=== PATIENT | female | born 1965 | race Caucasian/White ===

== ENCOUNTER → 2020-12-22 08:46 | Outpatient (CLI) | payer BC, SELFPAY ==
[2020-12-22 09:17] LABS: COVID19 -Nasal RAPID Negative (Negative)
== END ==
PROVIDERS: Visit Provider Physician Assistant
DX: Z20.822 Contact with and (suspected) exposure to COVID-19 (principal); J02.9 Acute pharyngitis, unspecified
CPT/HCPCS: 87635

== ENCOUNTER → 2021-02-19 09:56 | Outpatient (CLI) | payer BC, SELFPAY ==
--- NOTE | 2021-02-19 09:58 | DI.RAD.S_ITS ---
PROCEDURE: XR ANKLE LT MIN 3V INDICATIONS: inversion injury x3 day ago, pain, swelling TECHNIQUE: 3 views of the ankle were acquired. COMPARISON: [facility], , XR FOOT LT MIN 3V, 02/19/2021, 9:56. FINDINGS: Bones: No acute fractures or dislocations. Ankle mortise is normally aligned. No suspicious bony lesions. The talar dome demonstrates no ilana abnormality. A plantar calcaneal spur is seen. Mild, age-appropriate degenerative changes can be seen. Soft tissues: No tibiotalar joint effusion. Achilles tendon appears normal. IMPRESSION: Unremarkable ankle plain films for age. Dictated by: Michael Carty M.D. on 02/19/2021 at 9:15 Approved by: Michael Carty M.D. on 02/19/2021 at 9:16
--- NOTE | 2021-02-19 09:58 | DI.RAD.S_ITS ---
PROCEDURE: XR FOOT LT MIN 3V INDICATIONS: inversion injury x3 day ago, pain, swelling TECHNIQUE: 3 views of the foot were acquired. COMPARISON: [facility], CR, XR ANKLE LT MIN 3V, 02/19/2021, 9:56. FINDINGS: Bones: No fractures or dislocations. No suspicious bony lesions. A plantar calcaneal spur is seen. Age-appropriate bony degenerative changes are seen. Soft tissues: No tibiotalar joint effusion. Achilles tendon appears normal. IMPRESSION: Normal foot plain films for age, without acute fractures seen. Dictated by: Michael Carty M.D. on 02/19/2021 at 9:16 Approved by: Michael Carty M.D. on 02/19/2021 at 9:17
== END ==
PROVIDERS: PCP Internal Medicine; Referring Provider Physician Assistant; Visit Provider Physician Assistant
DX: S99.912A Unspecified injury of left ankle, initial encounter (principal); X58.XXXA Exposure to other specified factors, initial encounter
CPT/HCPCS: 73610; 73630

== ENCOUNTER → 2021-03-13 14:45 | Outpatient (CLI) | payer BC, SELFPAY ==
--- NOTE | 2021-03-13 14:49 | DI.RAD.S_ITS ---
PROCEDURE: XR ANKLE LT MIN 3V INDICATIONS: LT ANKLE ACUTE PAIN TECHNIQUE: 3 views of the ankle were acquired. COMPARISON: [facility], CR, XR ANKLE LT MIN 3V, 02/19/2021, 9:56. FINDINGS: Bones: No fractures or dislocations. Ankle mortise is normally aligned. No suspicious bony lesions. Soft tissues: Moderate-sized tibiotalar joint effusion. Achilles tendon appears normal. IMPRESSION: Moderate-sized tibiotalar effusion. No acute osseous finding. Dictated by: Fahad Garcia M.D. on 03/13/2021 at 16:57 Approved by: Fahad Garcia M.D. on 03/13/2021 at 16:58
== END ==
PROVIDERS: PCP Internal Medicine; Referring Provider Internal Medicine; Visit Provider Internal Medicine
DX: M25.572 Pain in left ankle and joints of left foot (principal); M25.472 Effusion, left ankle
CPT/HCPCS: 73610

== ENCOUNTER → 2021-04-25 18:02 | Outpatient (CLI) | payer BC, SELFPAY ==
--- NOTE | 2021-04-25 | DI.MRI.S_ITS ---
PROCEDURE: MR ANKLE LT WO CON INDICATIONS: pain in left ankle and joints of left foot TECHNIQUE: Noncontrast sagittal T1 spin echo and T2 fast spin echo with fat saturation, axial proton density fast spin echo and T2 fast spin echo with fat saturation, coronal T1 spin echo and T2 fast spin echo with fat saturation through the ankle/hindfoot. COMPARISON: None. FINDINGS: Image quality: Excellent. Bones and joints: No bone marrow contusions or fractures. No hindfoot coalitions. No osteochondral injuries of the talar dome. No pathologic joint effusions. Medial structures: Thickened posterior tibialis tendon with small amount of fluid distending tendon sheath suggestive of tendinosis and low-grade tenosynovitis at the level of talonavicular joint. The flexor digitorum longus and flexor hallucis longus tendons are intact. The posterior tibial neurovascular bundle appears normal within the tarsal tunnel, without extrinsic mass effect. The deep layer (anterior and posterior tibiotalar ligaments) and superficial layer (tibionavicular, tibiospring, and tibiocalcaneal ligaments) of the deltoid ligament appear normal. The spring ligament components (superomedial calcaneonavicular, medioplantar oblique calcaneonavicular, and inferoplantar longitudinal ligaments) are intact. Lateral structures: The anterior talofibular, calcaneofibular, and posterior talofibular ligaments appear thickened with intrasubstance T2 hyperintense signal concerning for sprain/low to moderate grade intrasubstance partial-thickness tear. No full-thickness relate lumen rupture.. More superiorly, the anterior and posterior tibiofibular ligaments appear intact, as is the intermalleolar ligament. The tibiofibular syndesmosis is normal in width at 2 mm or less. The peroneus longus and brevis tendons demonstrate normal location and morphology. Adjacent bony peroneal tubercle and retrotrochlear prominence are normal in size. The sinus tarsi demonstrates normal fatty signal, without edema, fibrosis, or cyst formation. Visualized sinus tarsi components (cervical ligament, interosseous talocalcaneal ligament, roots of the inferior extensor retinaculum) appear normal. The calcaneonavicular and calcaneocuboid components of the bifurcate ligament appear intact. The dorsal calcaneocuboid ligament appears intact. Anterior structures: The tibialis anterior, extensor hallucis longus, and extensor digitorum longus tendons appear intact. The dorsal talonavicular ligament appears intact. Posterior and plantar structures: Achilles tendon is intact. Medial and lateral bands of the plantar fascia are of normal thickness. No abductor digiti quinti muscle atrophy to suggest Connell neuropathy. IMPRESSION: 1. Mild tendinosis and low-grade tenosynovitis involving posterior tibialis tendon at the level of distal talus/talonavicular joint. Rest of the ankle tendons are grossly intact. 2. Sprain/low to moderate grade intrasubstance partial-thickness tear involving anterior and posterior talofibular ligaments and calcaneofibular ligament more prominent in anterior talofibular ligament. No full-thickness ligament rupture. Medial ankle ligaments are intact. 3. No marrow edema. No fracture or dislocation. No suspicious intraosseous lesion. Dictated by: Barrera Zuñiga M.D. on 04/26/2021 at 9:13 Approved by: Barrera Zuñiga M.D. on 04/26/2021 at 9:15
== END ==
PROVIDERS: PCP Internal Medicine; Referring Provider Orthopaedic Surgery Foot and Ankle Surgery; Visit Provider Orthopaedic Surgery Foot and Ankle Surgery
DX: S93.412A Sprain of calcaneofibular ligament of left ankle, initial encounter (principal); S93.492A Sprain of other ligament of left ankle, initial encounter; M65.872 Other synovitis and tenosynovitis, left ankle and foot; M25.572 Pain in left ankle and joints of left foot
CPT/HCPCS: 73721

== ENCOUNTER → 2022-01-16 07:51 | Outpatient (CLI) | payer BC, SELFPAY ==
[2022-01-16 08:45] LABS: Influenza A - CEPHEID Flu A NEGATIVE (NEGATIVE); Influenza B - CEPHEID Flu B NEGATIVE (NEGATIVE); Respiratory Syncytial Virus POSITIVE (Negative)
[2022-01-16 09:31] LABS: COVID-19 CEPHEID 4-PLEX PCR Negative (Negative)
== END ==
PROVIDERS: PCP Internal Medicine; Visit Provider Nurse Practitioner Family
DX: R05.9 Cough, unspecified (principal)
CPT/HCPCS: 0241U

== ENCOUNTER 2022-04-13 18:57 | Emergency (ER) | payer BC, SELFPAY ==
[2022-04-13 19:01] VITALS: BP 128/65; PULSE 78; RESP 18; TEMP 36.4; O2SAT 98; BMI 28.1
--- NOTE | 2022-04-13 19:48 | PC.NURSE ---
Pt grabbed stainless steel handle of garcia with right hand while cooking. Has red areas and scattered blisters across palm and on base of first/second fingers. All blisters intact. Pt arrived to ED with aloe vera gel on burned area.
--- NOTE | 2022-04-13 20:18 | ED.BURNSMOKE ---
HPI - Burn/Smoke Inhalation <Rosa Stephenson PA-C - Last Filed: 04/13/22 20:29> General Chief complaint: Burn/Smoke Inhalation Stated complaint: Burn on R hand Time Seen by Provider: 04/13/22 19:44 History of Present Illness HPI Narrative: 56-year-old female presents with concern for a burn sustained today at home on her right hand. Patient states that she had pulled a garcia out of the oven with a pop hold her using her left hand she had said it on top of the stove and went to rotate it with the handle and grabbed it with her right hand accidentally without any pot tena. She states she did not run it under any cold water initially but did put aloe plant on it. She initially went to the walk-in clinic but was advised she should come to the emergency department. She was concerned she might have a third-degree burn because it is blistering. She denies any other complaints or concerns. Related Data Home Medications Medication Instructions Recorded Confirmed levothyroxine PO 01/16/22 01/16/22 liothyronine PO 01/16/22 01/16/22 Previous Rx's Medication Instructions Recorded benzonatate 100 mg capsule 100 mg PO BID PRN cough #20 caps 01/16/22 bacitracin 500 unit/gram topical 1 applic topical TID burn 14 days 04/13/22 packet #144 ea Allergies Allergy/AdvReac Type Severity Reaction Status Date / Time No Known Drug Allergies Allergy Unverified 01/16/22 07:49 Patient History <Rosa Stephenson PA-C - Last Filed: 04/13/22 20:29> Social History Smoking Status: Never smoker Smoking Status: Never smoker alcohol intake frequency: a few times a week Alcohol type: wine Exam <Rosa Stephenson PA-C - Last Filed: 04/13/22 20:29> Narrative Exam Narrative: GENERAL: 56 year old patient appears stated age. Well-developed patient, in mild distress. HEAD: Atraumatic. Normocephalic. EYES: Pupils equal round and reactive. Extraocular motions intact. No scleral icterus. No injection or drainage. ENT: Nose without bleeding, purulent drainage. Airway patent. NECK: Trachea midline. Non tender CARDIOVASCULAR: Regular rate and rhythm RESPIRATORY: No increased work of breathing or respiratory distress GASTROINTESTINAL: Abdomen soft, non-tender, nondistended. EXTREMITIES: Strength and range of motion as well as sensation of the affected right hand are intact. There are superficial appearing first-degree robbins on the anterior aspect of the 2nd 3rd and 4th fingers, there is 1 region on the lateral aspect of the 3rd finger between the PIP and DI P that looks like it has some slight blistering, possibly second-degree. Additionally there is a approximately 4 cm long by 3 mm wide linear second-degree burn with blistering on the thenar eminence running approximately distal to proximal. There do not appear to be any sections with full-thickness robbins. No other edema or joint tenderness noted. BACK: Nontender without deformity or crepitance. No flank tenderness. NEURO: AOx3. SKIN: No rash or erythema of visible areas Initial Vital Signs Initial Vital Signs: Vital Signs Temperature 97.6 F 04/13/22 19:01 Pulse Rate 78 04/13/22 19:01 Respiratory Rate 18 04/13/22 19:01 Blood Pressure 128/65 04/13/22 19:01 Pulse Oximetry 98 04/13/22 19:01 Oxygen Delivery Method 04/13/22 19:01 <DO Avani Carvalho Last Filed: 04/14/22 05:05> Initial Vital Signs Initial Vital Signs: Vital Signs Temperature 97.6 F 04/13/22 19:01 Pulse Rate 78 04/13/22 19:01 Respiratory Rate 18 04/13/22 19:01 Blood Pressure 128/65 04/13/22 19:01 Pulse Oximetry 98 04/13/22 19:01 Oxygen Delivery Method 04/13/22 19:01 Course <NANCY Browning Last Filed: 04/13/22 20:29> Vital Signs Vital signs: Vital Signs - 8 hr 04/13/22 19:01 Temperature 97.6 F Pulse Rate 78 Respiratory Rate 18 Blood Pressure 128/65 Pulse Oximetry 98 Oxygen Delivery Method Room Air <DO Avani Carvalho Last Filed: 04/14/22 05:05> Vital Signs Vital signs: Vital Signs - 8 hr 04/13/22 19:01 Temperature 97.6 F Pulse Rate 78 Respiratory Rate 18 Blood Pressure 128/65 Pulse Oximetry 98 Oxygen Delivery Method Room Air MDM - Burn/Smoke Inhalation <NANCY Browning Last Filed: 04/13/22 20:29> Differential Diagnosis Differential diagnosis: Likely other (thermal burn to palm and fingers, pain in hand) Medical Records Attestation: I reviewed the patient's medical records. [facility] Narrative Medical decision making narrative: 56-year-old female presents with concern for robbins to her right hand sustained this evening around 18 30 when she was taking a garcia out of the stove. They occurred when she was rotating the garcia without a pot tena not when she was lifting the garcia. Robbins appear to be first-degree over the fingers, and a 2nd degree burn over the thenar eminence. No 3rd degree robbins suspected. There is no open skin. Strength range of motion and sensation are intact in the affected hand. Patient is advised to monitor for infection, use bacitracin if and when her blisters open up and keep the area clean. Follow up closely with primary care provider. Return precautions provided, follow-up plan discussed, all questions answered. Discharge Plan Departure Patient Disposition: Home Clinical Impression: Burn of hand, right, second degree, Burn of hand, right, first degree Activity Restrictions/Additional Instructions: Thank you for letting us be part of your care today in the emergency department. I am sorry these who sustained a burn to her hand today. It does look like this is largely first-degree although you do have that section at the base of her thumb that is a second-degree burn. Burn can manager change time and I suspect that the blistered area of your burn may open up as it heals. You should keep the area clean, you can keep the area dry, this evening cool water or careful brief icing on and off may be helpful for pain. As of tomorrow though I recommend just using Tylenol or ibuprofen, you can use aloe at home as you already have if you prefer, however if your wounds open up at all I do want you to use bacitracin ointment antibiotic and not use the aloe topically. You should follow-up with your primary care provider to monitor healing in the next 5-14 days. If your concerned that there are signs of infection such as increasing redness, increasing pain, heat around the robbins, increasing swelling or drainage especially thick or purulent greenish yellow discharge do not hesitate to seek re-evaluation. I did send in a prescription for bacitracin and we also gave you a few packets today in the emergency department. Prescriptions: New bacitracin 500 unit/gram packet 1 applic topical TID 14 Days Qty: 144 0RF No Action levothyroxine PO liothyronine PO benzonatate 100 mg capsule 100 mg PO BID PRN (Reason: cough) Qty: 20 0RF Referrals: Blaze Yarbrough MD [Primary Care Provider] - Stand Alone Forms: Patient Portal/API <Chuyita Shane DO - Last Filed: 04/14/22 05:05> Cosign ED Attending Radha Attestation: I was immediately available in the department for consultation. Documentation has been reviewed.
== END 2022-04-13 20:30 | disposition home or self-care (01) ==
PROVIDERS: Emergency Provider Student in an Organized Health Care Education/Training Program; PCP Internal Medicine
DX: T23.221A Burn of second degree of single right finger (nail) except thumb, initial encounter (principal); T23.131A Burn of first degree of multiple right fingers (nail), not including thumb, initial encounter; X15.3XXA Contact with hot saucepan or skillet, initial encounter
CPT/HCPCS: 99281

== ENCOUNTER → 2022-06-21 13:46 | Outpatient (CLI) | payer BC, SELFPAY ==
--- NOTE | 2022-06-21 13:47 | DI.RAD.S_ITS ---
PROCEDURE: XR LUMBAR SPINE MIN 4V INDICATIONS: BACK PAIN TECHNIQUE: 5 views of the lumbar spine were acquired, including bilateral oblique views. COMPARISON: None. FINDINGS: Bones: 5 nonrib-bearing vertebrae are present. There is normal bony alignment. No vertebral body compression fractures. No suspicious bony lesions. There is mild degenerative disc height reduction best seen at L5-S1. Facet osteoarthritis is mild at L3-4, and becomes progressively more prominent at L4-5 and L5-S1. Soft tissues: Overlying bowel gas pattern is normal. No suspicious soft tissue calcifications. Oblique images: No pars defects. IMPRESSION: No compression fracture found. [id number] degenerative facet osteoarthritis becoming progressively more prominent from L3 through S1, with mild degenerative disc height reduction at the lumbosacral junction, but subluxation. Dictated by: Chalo Shah M.D. on 06/21/2022 at 15:02 Approved by: Chalo Shah M.D. on 06/21/2022 at 15:04
--- NOTE | 2022-06-21 13:47 | DI.RAD.S_ITS ---
PROCEDURE: XR CERVICAL SPINE 4V OR 5V INDICATIONS: NECK PAIN TECHNIQUE: 5 views of the cervical spine acquired. COMPARISON: None. FINDINGS: Bones: No fractures or dislocations to the T1 level. Oblique images demonstrate no significant bony foraminal stenoses except at the C5-6 neural foramen, bilaterally, right greater than left. This is also the level of maximal degenerative disc height reduction and endplate osteophytic spurring, with only mild such degenerative changes elsewhere. Soft tissues: No prevertebral soft tissue swelling. IMPRESSION: C5-6 moderate degenerative disc disease and facet osteoarthritis with spurring likely causing asymmetric right greater than left foraminal stenosis and mild spinal stenosis. Depending on the clinical status follow-up by MR scanning may be warranted given these findings. Dictated by: Chalo Shah M.D. on 06/21/2022 at 15:00 Approved by: Chalo Shah M.D. on 06/21/2022 at 15:02
--- NOTE | 2022-06-21 13:47 | DI.RAD.S_ITS ---
PROCEDURE: XR THORACIC SPINE 3V INDICATIONS: RIB PAIN TECHNIQUE: 3 views of the thoracic spine were acquired. COMPARISON: None. FINDINGS: Bones: No fractures or dislocations. No suspicious bony lesions. 12 pairs of ribs are noted, and appear intact where visualized. Soft tissues: No paravertebral stripe thickening. IMPRESSION: Mild degenerative disc disease without subluxation is noted along the thoracic spine. No compression fracture found, no osteophytic spurring identified. Dictated by: Chalo Shah M.D. on 06/21/2022 at 15:04 Approved by: Chalo Shah M.D. on 06/21/2022 at 15:05
== END ==
PROVIDERS: PCP Internal Medicine; Referring Provider Physical Medicine & Rehabilitation; Visit Provider Physical Medicine & Rehabilitation
DX: M50.322 Other cervical disc degeneration at C5-C6 level (principal); M47.812 Spondylosis without myelopathy or radiculopathy, cervical region; M47.814 Spondylosis without myelopathy or radiculopathy, thoracic region; M47.816 Spondylosis without myelopathy or radiculopathy, lumbar region; M47.817 Spondylosis without myelopathy or radiculopathy, lumbosacral region; M54.9 Dorsalgia, unspecified; R07.81 Pleurodynia
CPT/HCPCS: 72050; 72072; 72110

== ENCOUNTER 2022-10-31 20:27 | Emergency (ER) | payer BC, SELFPAY ==
[2022-10-31 20:30] VITALS: BP 121/75; PULSE 73; RESP 18; TEMP 37.1; O2SAT 98; BMI 27.8
[2022-10-31 21:11] LABS: Add Manual Diff / Slide Review NO; Basophils Absolute Auto 0 /uL (0-100); Basophils Percent Auto 0.6 % (0-2); Eosinophils Absolute Auto 300 /uL (0-450); Eosinophils Percent Auto 3.7 % (2-4); Hemoglobin 13.1 g/dL (12.0-16.0); Lymphocytes Absolute Auto 2700 /uL (1100-4500); Lymphocytes Percent Auto 36.4 % (25-40); Mean Corpuscular HGB Conc 34.5 % (30-36); Mean Corpuscular Hemoglobin 29.5 PG (26-34); Mean Corpuscular Volume 85.6 fL (80-100); Monocytes Absolute Auto 400 /uL (0-900); Monocytes Percent Auto 4.9 % (3-14); Neutrophils Absolute Auto 4000 /uL (1500-7000); Neutrophils Percent Auto 54.4 % (50-75); Platelet Count 194 X10^3/uL (150-400); Red Blood Cell Count 4.45 X10^6/uL (4.0-5.2); Red Cell Distribution Width 12.8 % (11.6-14.8); White Blood Cell Count 7.3 X10^3/uL (4.5-11.0)
[2022-10-31 21:12] LABS: Alanine Aminotransferase 24 IU/L (<35); Albumin 4.2 g/dL (3.5-5.0); Albumin Globulin Ratio 1.3 (1.0-2.8); Alkaline Phosphatase 83 U/L (38-126); Aspartate Aminotransferase 31 IU/L (14-36); BUN Creatinine Ratio 22.6 (6-22); Bilirubin Total 0.3 mg/dL (0.2-1.3); Blood Urea Nitrogen 19 mg/dL (7-17); Carbon Dioxide 27 mmol/L (22-32); Chloride 105 mmol/L (98-107); Estimated Glomerular Filt Rate > 60 mL/min (>60); Globulin 3.2 g/dL (1.7-4.1); Glucose 134 mg/dL (70-100); HEMOLYSIS < 15 (0-50); Lipase 81 U/L (23-300); Potassium 4.2 mmol/L (3.4-5.1); Sodium 140 mmol/L (137-145); Total Protein 7.4 g/dL (6.3-8.2)
[2022-10-31 21:29] LABS: Bacteria Urine None Seen; Culture Indicated Urine Specimen Cultured; RBC Urine 0-1/HPF (0-5/HPF); Squamous Epithelial Cell Urine None Seen (0-5/HPF); WBC Urine 1-5/HPF (0-5/HPF)
[2022-10-31 21:48] VITALS: BP 123/86; PULSE 68; O2SAT 100
--- NOTE | 2022-10-31 21:52 | ED.GENADULT ---
HPI - General Adult General Chief complaint: Abdominal Pain Stated complaint: upper abd pain Time Seen by Provider: 10/31/22 21:46 Source: patient and family Mode of arrival: Ambulatory History of Present Illness HPI narrative: Patient is a 56-year-old female who is here for evaluation of upper abdominal discomfort. She is currently intermediate through treatment of Macrobid for a urinary tract infection. I do not have these records to review as this was performed at an outside facility. She denies any nausea or vomiting. She is not had a bowel movement since yesterday. No chest pain or shortness of breath. She states the pain is now radiating around to her back. It has gone on throughout today. Not worse with palpation or eating. She has had her gallbladder removed. Related Data Home Medications Medication Instructions Recorded Confirmed azelastine 137 mcg (0.1 %) nasal 1 spray intranasal BID 06/26/22 06/26/22 spray aerosol calcium acetate 667 mg tablet 667 mg PO ONCE 06/26/22 06/26/22 cholecalciferol (vitamin D3) 50 50 mcg PO DAILY 06/26/22 06/26/22 mcg (2,000 unit) capsule fluticasone propionate 220 1 puff inhalation BID 06/26/22 06/26/22 mcg/actuation HFA aerosol inhaler (Flovent HFA) levothyroxine 75 mcg tablet 75 mcg PO DAILY 06/26/22 06/26/22 liothyronine 5 mcg tablet 15 mcg PO DAILY 06/26/22 06/26/22 metronidazole 0.75 % topical cream 1 applic topical DAILY 06/26/22 06/26/22 vitamin B complex 1 tab PO DAILY 06/26/22 06/26/22 Previous Rx's Medication Instructions Recorded celecoxib 200 mg capsule (Celebrex) 200 mg PO DAILY #30 caps 06/26/22 sucralfate 100 mg/mL oral 10 ml PO QACHS PRN abdominal pain 11/01/22 suspension (Carafate) #414 mL Allergies Allergy/AdvReac Type Severity Reaction Status Date / Time diphenhydramine Allergy Severe Agitated Verified 06/26/22 15:35 [From Benadryl] latex Allergy Intermediate Rash Verified 06/26/22 15:35 Review of Systems Review of Systems ROS Unobtainable: All systems reviewed & are unremarkable except as noted in HPI and below Patient History Medical History Facet arthropathy, lumbar Lumbar radiculopathy Surgical History H/O myomectomy H/O sinus surgery History of ankle surgery History of cholecystectomy Family History Father Aortic aneurysm Heart disease Mother Diabetes mellitus Hypothyroid ELAINE (nonalcoholic steatohepatitis) Sister Hypothyroid Diabetes mellitus Social History Smoking Status: Never smoker Smoking Status: Never smoker alcohol intake frequency: a few times a week Alcohol type: wine Substance Use Type: does not use Exam Initial Vital Signs Initial Vital Signs: Vital Signs Temperature 98.7 F 10/31/22 20:30 Pulse Rate 73 10/31/22 20:30 Respiratory Rate 18 10/31/22 20:30 Blood Pressure 121/75 10/31/22 20:30 Pulse Oximetry 98 10/31/22 20:30 Oxygen Delivery Method Room Air 10/31/22 20:30 Const General: cooperative, comfortable and No ill appearing HENMT Head: normal to inspection and normocephalic Resp Effort & Inspection: normal respiratory effort Auscultation: clear to auscultation bilaterally Cardio Rate: regular rate Rhythm: regular rhythm GI Inspection: normal to inspection and non-distended Palpation: soft, No firm, No guarding and tender (Epigastric region) Back/Spine/Pelvis Back: No CVA tenderness Skin General: no rashes or lesions noted Neuro General: patient alert, patient awake and moves all extremities Extrem General: normal to inspection and capillary refill normal Course Orders Ordered: ED Orders 10/31/22 20:45 Complete Blood Count AUTO DIFF Stat Comprehensive Metabolic Panel Stat Lipase Stat 10/31/22 20:50 Urine Culture Stat Urine Microscopic Stat 10/31/22 21:53 CT abdomen pelvis w con Stat Ondansetron HCl (Ondansetron 4 Mg Odt) 4 mg PO NOW PRN PRN Reason: Nausea And Vomiting Ondansetron HCl (Ondansetron 4 Mg/2 Ml Inj) 4 mg IV NOW PRN PRN Reason: Nausea And Vomiting Discontinued Medications Morphine Sulfate (Morphine 4 Mg/Ml Inj) 4 mg IV NOW ONE Stop: 10/31/22 22:36 Last Admin: 10/31/22 22:42 Dose: 4 mg Documented By: ERIK Vital Signs Vital signs: Vital Signs - 8 hr 10/31/22 20:30 10/31/22 21:48 10/31/22 21:48 Temperature 98.7 F Pulse Rate 73 68 Respiratory Rate 18 Blood Pressure 121/75 123/86 Pulse Oximetry 98 100 Oxygen Delivery Method Room Air Room Air Medical Decision Making Medical Records Medical records reviewed: Yes I reviewed the patient's medical records. Lab Data Lab results reviewed: Yes I reviewed the patient's lab results. 10/31/22 20:45 10/31/22 20:45 Labs: Lab Results 10/31/22 10/31/22 10/31/22 Range/Units 20:45 20:45 20:50 WBC 7.3 (4.5-11.0) X10^3/uL RBC 4.45 (4.0-5.2) X10^6/uL Hgb 13.1 (12.0-16.0) g/dL Hct 38.0 (36-46) % MCV 85.6 (80-100) fL MCH 29.5 (26-34) PG MCHC 34.5 (30-36) % RDW 12.8 (11.6-14.8) % Plt Count 194 (150-400) X10^3/uL Neut % (Auto) 54.4 (50-75) % Lymph % (Auto) 36.4 (25-40) % [place] % (Auto) 4.9 (3-14) % Eos % (Auto) 3.7 (2-4) % Baso % (Auto) 0.6 (0-2) % Neut # (Auto) 4000 (3878-7146) /uL Lymph # (Auto) 2700 (3250-6859) /uL [place] # (Auto) 400 (0-900) /uL Eos # (Auto) 300 (0-450) /uL Baso # (Auto) 0 (0-100) /uL Sodium 140 (137-145) mmol/L Potassium 4.2 (3.4-5.1) mmol/L Chloride 105 (98-107) mmol/L Carbon Dioxide 27 (22-32) mmol/L BUN 19 H (7-17) mg/dL Creatinine 0.84 (0.52-1.04) mg/dL Estimated GFR > 60 (>60) mL/min BUN/Creatinine Ratio 22.6 H (6-22) Glucose 134 H (70-100) mg/dL Calcium 9.0 (8.4-10.2) mg/dL Total Bilirubin 0.3 (0.2-1.3) mg/dL AST 31 (14-36) IU/L ALT 24 (<35) IU/L Alkaline Phosphatase 83 (38-126) U/L Total Protein 7.4 (6.3-8.2) g/dL Albumin 4.2 (3.5-5.0) g/dL Globulin 3.2 (1.7-4.1) g/dL Albumin/Globulin Ratio 1.3 (1.0-2.8) Lipase 81 (23-300) U/L Urine RBC 0-1/hpf (0-5/HPF) Urine WBC 1-5/hpf (0-5/HPF) Ur Squamous Epith Cells None seen (0-5/HPF) Urine Bacteria None seen (None) Ur Culture Indicated? Specimen cultured Urine Dip Bedside Urine Glucose Negative Bedside Urine Bilirubin - Negative Bedside Urine Ketone - Negative Urine Specific [place] 1.015 Bedside Urine Occult Blood +/- Bedside Urine pH 6.0 Bedside Urine Protein - Negative Bedside Urine Urobilinogen - Negative Bedside Urine Nitrite - Negative Bedside Urine Leukocytes + 70 Esterase Point of care testing: Urine Dip Bedside Urine Glucose Negative Bedside Urine Bilirubin - Negative Bedside Urine Ketone - Negative Urine Specific [place] 1.015 Bedside Urine Occult Blood +/- Bedside Urine pH 6.0 Bedside Urine Protein - Negative Bedside Urine Urobilinogen - Negative Bedside Urine Nitrite - Negative Bedside Urine Leukocytes + [address] scan - abdomen/pelvis: Radiologist's Impression: PROCEDURE:? CT ABDOMEN PELVIS W CON ? INDICATIONS:? Upper abdominal pain ? TECHNIQUE:? After the administration of IV contrast, axial sections were acquired from the lung bases to the pubic symphysis.? Coronal and sagittal reformats were performed.? For radiation dose reduction, the following was used:? automated exposure control, adjustment of mA and/or kV according to patient size. ? COMPARISON:? None. ? FINDINGS:? Image quality:? Excellent.? ? Lung bases:? There is mild dependent atelectasis.? ? Heart:? Heart is normal in size.? There is a small hiatal hernia. ? ? ABDOMEN: Liver:? Multiple cysts are demonstrated in the left hepatic lobe.? Gallbladder:? Surgically absent. Biliary ducts:? No biliary ductal dilatation.? ? Pancreas:? Unremarkable.? ? Spleen:? Normal in size.? ? Adrenal Glands:? No adrenal nodules.? ? Kidneys and Ureters:? No hydronephrosis.? ? ? Stomach and Bowel:? Stomach, small bowel loops, and colon are normal in caliber and wall thickness.? Peritoneum:? No abnormal intraperitoneal fluid.? No free air.? ? Ventral Wall: ? No hernia.? Abdominal Nodes:? No retroperitoneal or mesenteric adenopathy by size criteria.? Vessels:? Aorta and inferior vena cava are normal in size.? ? PELVIS: Pelvic Organs:? There are bilateral thin-walled ovarian cysts measuring up to 2.6 cm. Bladder:? Unremarkable.? ? Pelvic Nodes: No enlarged lymph nodes.? Miscellaneous: No inguinal hernias are seen. ? ? ? Bones:? Visualized osseous structures demonstrate no suspicious focal lesions. ? IMPRESSION:? ? 1. No definite acute intra-abdominal abnormality. ? 2. Small hiatal hernia MDM Narrative Medical decision making narrative: Urine is clean. She has had her gallbladder removed. LFTs and lipase unremarkable. Labs unremarkable. CT scan shows no acute pathology. Low suspicion for pyelonephritis. Low suspicion for acute surgical pathology. I have a higher suspicion that her symptoms are GI related most likely because of the Macrobid. She was given Protonix here in the ER. Was sent home with a prescription for Carafate. No indication for admission to the hospital or surgical consultation. She was given return precautions. She expressed understanding and agreement. Discharge Plan Departure Patient Disposition: Home Clinical Impression: Abdominal pain Instructions: DI for Abdominal Pain-Adult Activity Restrictions/Additional Instructions: Recommend that you continue to take all of your medications as directed. I also recommend that you use the Carafate as directed/as needed like we discussed. I suspect that your symptoms will improve once you are finished with the course of antibiotics. Return to the emergency department for new or worsening symptoms. Prescriptions: New sucralfate [Carafate] 100 mg/mL suspension 10 ml PO QACHS PRN (Reason: abdominal pain) Qty: 414 0RF No Action levothyroxine 75 mcg tablet 75 mcg PO DAILY Patient Comments: take 1 tablet by mouth once daily liothyronine 5 mcg tablet 15 mcg PO DAILY Patient Comments: take 3 tablets by mouth once daily azelastine 137 mcg (0.1 %) aerosol,spray 1 spray intranasal BID Rx Instructions: administer into each nostril metronidazole 0.75 % cream 1 applic topical DAILY fluticasone propionate [Flovent HFA] 220 mcg/actuation HFA aerosol inhaler 1 puff inhalation BID vitamin B complex Tablet 1 tab PO DAILY calcium acetate 667 mg tablet 667 mg PO ONCE cholecalciferol (vitamin D3) 50 mcg (2,000 unit) capsule 50 mcg PO DAILY celecoxib [Celebrex] 200 mg capsule 200 mg PO DAILY Qty: 30 2RF Referrals: Eileen Jiménez DO [Primary Care Provider] - Stand Alone Forms: Patient Portal/API
--- NOTE | 2022-10-31 21:53 | DI.CT.S_ITS ---
PROCEDURE: CT ABDOMEN PELVIS W CON INDICATIONS: Upper abdominal pain TECHNIQUE: After the administration of IV contrast, axial sections were acquired from the lung bases to the pubic symphysis. Coronal and sagittal reformats were performed. For radiation dose reduction, the following was used: automated exposure control, adjustment of mA and/or kV according to patient size. COMPARISON: None. FINDINGS: Image quality: Excellent. Lung bases: There is mild dependent atelectasis. Heart: Heart is normal in size. There is a small hiatal hernia. ABDOMEN: Liver: Multiple cysts are demonstrated in the left hepatic lobe. Gallbladder: Surgically absent. Biliary ducts: No biliary ductal dilatation. Pancreas: Unremarkable. Spleen: Normal in size. Adrenal Glands: No adrenal nodules. Kidneys and Ureters: No hydronephrosis. Stomach and Bowel: Stomach, small bowel loops, and colon are normal in caliber and wall thickness. Peritoneum: No abnormal intraperitoneal fluid. No free air. Ventral Wall: No hernia. Abdominal Nodes: No retroperitoneal or mesenteric adenopathy by size criteria. Vessels: Aorta and inferior vena cava are normal in size. PELVIS: Pelvic Organs: There are bilateral thin-walled ovarian cysts measuring up to 2.6 cm. Bladder: Unremarkable. Pelvic Nodes: No enlarged lymph nodes. Miscellaneous: No inguinal hernias are seen. Bones: Visualized osseous structures demonstrate no suspicious focal lesions. IMPRESSION: 1. No definite acute intra-abdominal abnormality. 2. Small hiatal hernia. Dictated by: Janes Worthy M.D. on 10/31/2022 at 23:44 Approved by: Janes Worthy M.D. on 10/31/2022 at 23:49
[2022-10-31 22:00] VITALS: BP 114/77; PULSE 60; RESP 16; O2SAT 97
[2022-10-31 22:30] VITALS: BP 118/70; PULSE 64; RESP 19; O2SAT 96
[2022-10-31] MEDS: MORPHINE 4 MG/ML INJ IV (22:42)
[2022-10-31 23:00] VITALS: BP 121/58; PULSE 62; RESP 14; O2SAT 96
[2022-10-31 23:30] VITALS: BP 112/65; PULSE 60; RESP 13; O2SAT 97
[2022-11-01] VITALS: BP 124/72; PULSE 63; RESP 16; O2SAT 97
[2022-11-01] MEDS: PANTOPRAZOLE 40 MG VIAL IV (00:08)
== END 2022-11-01 00:20 | disposition home or self-care (01) ==
PROVIDERS: Emergency Provider Emergency Medicine; PCP Family Medicine
DX: R10.10 Upper abdominal pain, unspecified (principal)
CPT/HCPCS: 36415; 74177; 80053; 81003; 81015; 83690; 85025; 87086; 96374; 96375; 99284; C9113; J2270; Q9967

== ENCOUNTER → 2022-11-28 16:13 | Outpatient (CLI) | payer BC, SELFPAY ==
--- NOTE | 2022-11-28 | DI.US.S_ITS ---
PROCEDURE: US ABDOMEN LIMITED INDICATIONS: HEPATIC CYSTS TECHNIQUE: Real-time scanning was performed of the abdominal and retroperitoneal organs, with image documentation. COMPARISON: [facility], CT, CT ABDOMEN PELVIS W CON, 10/31/2022, 22:02. FINDINGS: Liver: Liver is normal in size and homogeneous in echotexture. Anechoic simple cysts in the left hepatic lobe with no septations measuring 1.3 x 1.1 x 1.2 cm and 1.2 x 0.9 x 0.8 cm. Anechoic simple cyst in the left hepatic lobe within linear septation measuring 1.2 x 0.9 x 0.8 cm. Complex anechoic cystic lesion with septations in the left hepatic lobe measuring 2.5 x 2.1 x 3.2 cm. Gallbladder: Cholecystectomy. Biliary ducts: Intrahepatic bile ducts are non-dilated. Extrahepatic bile duct caliber measures 4 mm. Normal is 6-7 mm or less in diameter, or 10 mm or less post-cholecystectomy. Pancreas: Visualized portions of the pancreas are sonographically normal. Miscellaneous: No free abdominal fluid. IMPRESSION: 1. Complex cystic lesion in the left hepatic lobe with septations measuring 2.5 x 2.1 x 3.2 cm. Differential includes a complex hepatic cyst versus a biliary cystadenoma. Recommend an MRI (liver mass protocol) for further evaluation. 2. Cholecystectomy with no intrahepatic or extrahepatic biliary ductal dilatation. Dictated by: Norm Kramer M.D. on 11/29/2022 at 11:45 Approved by: Norm Kramer M.D. on 11/29/2022 at 11:58
--- NOTE | 2022-11-28 | DI.US.S_ITS ---
PROCEDURE: US PELVIC COMPLETE INDICATIONS: OVARIAN CYST TECHNIQUE: Real-time scanning was performed of the pelvic organs, with image documentation. Additional endovaginal scanning was necessary due to incomplete visualization of the adnexal and endometrial structures by transabdominal scanning. COMPARISON: None. FINDINGS: Uterus: Uterus is anteverted and normal in size at 6.3 x 3.2 x 4.1 cm. The myometrium is heterogeneous. The endometrium measures 3 mm combined thickness. At least 3 intramural fibroids, largest measuring 1.8 centimeters along the anterior, left location. Ovaries: The right ovary measures 4.6 x 2.2 x 3.3 cm, with a calculated ovarian volume of 17 cc. The left ovary measures 3.9 x 2.2 x 3.1 cm, with a calculated ovarian volume of 14 cc. Simple appearing bilateral ovarian cystic lesions, largest measuring 2.4 x 2.1 x 3.1 centimeters on the right and 2.5 x 2.4 x 2.1 centimeters on the left. No internal complexity. No papillary projections. Other: No pathologic free abdominal or pelvic fluid. IMPRESSION: Bilateral O-RADS 2 ovarian cysts. At least 3 intramural fibroids, largest measuring 1.8 centimeter. We strive to produce accurate, complete, and clear reports of imaging services. To assist us in improving patient care, this report was composed using standard report templates and voice recognition software. Therefore, it may contain abnormal punctuation, insertions and/or omissions. Occasional wrong-word or sound-alike substitutions may occur. Though we review the report and make efforts to correct it, we do recommend that the report be read carefully in proper context to recognize any text inaccuracies. Dictated by: Dago Rendon M.D. on 11/29/2022 at 9:57 Approved by: Dago Rendon M.D. on 11/29/2022 at 10:02
== END ==
PROVIDERS: PCP Family Medicine; Referring Provider Family Medicine; Visit Provider Family Medicine
DX: K76.89 Other specified diseases of liver (principal); N83.202 Unspecified ovarian cyst, left side; N83.201 Unspecified ovarian cyst, right side; D25.1 Intramural leiomyoma of uterus; Z90.49 Acquired absence of other specified parts of digestive tract
CPT/HCPCS: 76705; 76856

== ENCOUNTER → 2023-01-28 07:45 | Outpatient (CLI) | payer BC, SELFPAY ==
--- NOTE | 2023-01-28 | DI.MRI.S_ITS ---
PROCEDURE: MR ABDOMEN LIVER PROTOCOL INDICATIONS: LIVER CYST TECHNIQUE: Coronal HASTE, axial 2D FLASH in- and [id number]; axial breath-hold T2 FSE. Dynamic axial VIBE during the administration of contrast; post-contrast coronal VIBE or 2D FLASH with fat saturation from the hepatic dome to the iliac crests. Optional diffusion weighted imaging and ADC may be performed. COMPARISON: [facility], CT, CT ABDOMEN PELVIS W CON, 10/31/2022, 22:02. FINDINGS: Image quality: Diagnostic. Lung bases: No basal pleural effusions. Heart size is normal. Liver: Interval growth of a multiloculated left hepatic mass in segment 2, measuring 4.1 x 3.5 centimeters, previously 2.5 x 2.2 centimeters (series 5, image 12). This contains smooth internal septations, and no nodularity. Gallbladder: No stones or wall thickening. Biliary tree: No dilation. Pancreas: No ductal dilation. Spleen: Normal size. Adrenal glands: No adrenal nodules. Kidneys: No hydronephrosis. No solid mass. No complex renal cyst which requires follow up, per consensus guidelines. Nodes and vessels: No retroperitoneal or mesenteric adenopathy by size criteria. Aorta and inferior vena cava are normal in size. Bowel and peritoneum: Normal colonic caliber. No free fluid. Bones and soft tissues: No ventral hernias. Bone marrow is normal in overall signal. IMPRESSION: Interval growth a multilocular left patent mass in segment 2, measuring 4.1 x 3.5 centimeters, previously 2.5 x 2.2 centimeters. Differential includes a benign hepatic cyst or biliary cystadenoma/cystadenocarcinoma. Consider surgery referral. Dictated by: Dago Rendon M.D. on 01/28/2023 at 9:54 Approved by: Dago Rendon M.D. on 01/28/2023 at 10:00
== END ==
PROVIDERS: PCP Family Medicine; Referring Provider Family Medicine; Visit Provider Family Medicine
DX: K76.89 Other specified diseases of liver (principal)
CPT/HCPCS: 74183

== ENCOUNTER → 2023-02-28 13:15 | Outpatient (CLI) | payer BC, SELFPAY | PROVIDERS: PCP Family Medicine; Visit Provider Physician Assistant | DX: R30.0 Dysuria (principal) | CPT/HCPCS: 87077; 87086; 87186 ==

== ENCOUNTER → 2024-08-03 08:52 | Outpatient (CLI) | payer BC, SELFPAY ==
--- NOTE | 2024-08-03 08:55 | DI.RAD.S_ITS ---
PROCEDURE: XR ANKLE RT MIN 3V INDICATIONS: ANKEL PAIN TECHNIQUE: 3 views of the ankle were acquired. COMPARISON: [facility], CR, XR ANKLE LT MIN 3V, 03/13/2021, 16:08. FINDINGS: Bones: There are no osseous abnormalities. Tibiotalar and talocalcaneal joints: Normal in width and alignment without arthritic change. Soft tissues: No soft tissue swelling, calcification or mass. IMPRESSION: Normal ankle Dictated by: Aquiles Park M.D. on 08/03/2024 at 11:55 Approved by: Aquiles Park M.D. on 08/03/2024 at 11:56
== END ==
PROVIDERS: PCP Family Medicine; Referring Provider Family Medicine; Visit Provider Family Medicine
DX: S93.401A Sprain of unspecified ligament of right ankle, initial encounter (principal); X58.XXXA Exposure to other specified factors, initial encounter
CPT/HCPCS: 73610